=== PATIENT | female | born 2000 | race Two or more races ===

== ENCOUNTER 2022-05-29 12:17 | Outpatient (CLI) | payer BC | END 2022-05-29 23:59 | disposition home or self-care (01) | LOC: RAD 12:17 | DX: M53.3 Sacrococcygeal disorders, not elsewhere classified (principal); Z91.81 History of falling | CPT/HCPCS: 72100-TC; 73521 ==

== ENCOUNTER 2022-10-16 09:40 | Emergency (ER) | payer BC ==
[~2022-10-16] VITALS: Ht 165.1 cm; Wt 106.6 kg
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
[2022-10-16] MEDS ORDERED: CT SWABBABLE VALVE TRANS SET 1 EA INFUS.SET MC ONE (10:41)
[2022-10-16] MEDS ORDERED: IV NS 0.9% 250 ML IV ONE (10:41)
[2022-10-16] MEDS ORDERED: IOHEXOL-300 100 ML VIAL IV ONE (10:41)
--- NOTE | 2022-10-16 10:43 | NUR ---
PT TAKEN TO CT VIA [facility]
--- NOTE | 2022-10-16 11:00 | NUR ---
IV ACCESS ESTABLISHED 20G RIGHT AC. BLOOD DRAWN AND SENT TO LAB
--- NOTE | 2022-10-16 11:05 | NUR ---
THE PATIENT IS BACK FROM CT IN STABLE CONDITION.
[2022-10-16 11:40] LABS: BASOPHILS % (AUTO) 0.2 % (0.0-2.0); EOSINOPHILS % (AUTO) 0.2 % (0.0-6.0); HEMATOCRIT 41 % (33-45); HEMOGLOBIN 13.2 g/dL (11.5-14.8); LYMPHOCYTES # (AUTO) 1.2 K/uL (0.8-4.8); LYMPHOCYTES % (AUTO) 5.7 % (20.0-44.0); MEAN CORPUSCULAR HGB CONC 33 g/dl (31.0-36.0); MEAN CORPUSCULAR VOLUME 84 fL (82-100); MONOCYTES # (AUTO) 0.9 K/uL (0.1-1.30); MONOCYTES % (AUTO) 4.2 % (2.0-12.0); NEUTROPHILS # (AUTO) 18.7 K/uL (1.8-8.9); NEUTROPHILS % (AUTO) 89.7 % (43.0-81.0); PLATELET COUNT (AUTO) 177 K/uL (150-450); RED BLOOD CELL COUNT(AUTO) 4.81 MIL/uL (4.0-5.2); WHITE BLOOD COUNT (AUTO) 20.9 K/uL (4.3-11.0)
[2022-10-16 11:52] LABS: CALCIUM, SERUM 8.7 mg/dL (8.5-10.1); CREATININE 0.7 mg/dL (0.6-1.3); POTASSIUM 3.6 mmol/L (3.5-5.1)
[2022-10-16] MEDS ORDERED: CYCL5TAB PO (11:56)
[2022-10-16] MEDS ORDERED: IBUP-1955 PO (11:56)
[2022-10-16 11:59] LABS: ALBUMIN 3.6 g/dL (3.4-5.0); BILIRUBIN,DIRECT 0.1 mg/dL (0.0-0.2); BILIRUBIN,TOTAL 0.3 mg/dL (0.2-1.0); TOTAL PROTEIN, SERUM 7.9 g/dL (6.4-8.2)
[2022-10-16] MEDS ORDERED: KETOROLAC TROMETHAMINE 15 MG/ML VIAL ONE (12:14)
--- NOTE | 2022-10-16 12:20 | NUR ---
Patient discharged to home in stable condition. Written and verbal after care instructions given. Patient verbalizes understanding of instruction. IV removed. Catheter intact and site benign. Pressure and 4x4 applied to site. No bleeding noted.
[2022-10-16 12:27] VITALS: BP 144/107
[2022-10-16] MEDS ORDERED: KETOROLAC TROMETHAMINE INJ 30 MG/ML VIAL IV ONE (12:30)
== END 2022-10-16 12:28 | disposition home or self-care (01) ==
LOC: ER 09:46
DX: S16.1XXA Strain of muscle, fascia and tendon at neck level, initial encounter (principal); S00.511A Abrasion of lip, initial encounter; S40.811A Abrasion of right upper arm, initial encounter; S40.812A Abrasion of left upper arm, initial encounter; S80.812A Abrasion, left lower leg, initial encounter; S80.811A Abrasion, right lower leg, initial encounter; R07.89 Other chest pain; V49.9XXA Car occupant (driver) (passenger) injured in unspecified traffic accident, initial encounter; Y93.89 Activity, other specified; Y92.89 Other specified places as the place of occurrence of the external cause; Y99.8 Other external cause status
CPT/HCPCS: 99285; 72125; 96374; 71260; 70450; 74177; 85025; 80048; 80076; 36415; J7050; A6403; Q9967; J1885